=== PATIENT | male | born 1975 | race Caucasian/White ===

== ENCOUNTER 2023-01-12 02:41 | Inpatient (IN) | payer MEDICAID ==
[~2023-01-12] VITALS: Ht 170.2 cm; Wt 71.2 kg
[2023-01-12] MEDS ORDERED: SODIUM CHLORIDE 0.9% 1000ML BAG (SEPSIS BOLUS) IV ONE (03:15)
[2023-01-12] MEDS ORDERED: PIPERACILLIN/TAZ 3.375G PREMIX 50 ML IV ONE (03:15)
[2023-01-12] MEDS ORDERED: VANCOMYCIN 1G PREMIX 200 ML IV ONE (03:15)
[2023-01-12 03:37] LABS: HEMATOCRIT. 33.5 % (42.0-52.0); MEAN CORPUSCULAR HEMOGLOBIN 27.4 pg (28.0-32.0); MEAN CORPUSCULAR HGB CONC 32.8 g/dL (31.0-37.0); MEAN CORPUSCULAR VOLUME 83.6 fL (80.0-94.0); MEAN PLATELET VOLUME 7.8 fl (7.4-10.4); PLATELET 276 x1000/uL (130-400); RED CELL DISTRIBUTION WIDTH 18.2 % (11.6-14.6)
[2023-01-12 03:45] LABS: CHLORIDE 95 mEq/L (98-107); INDEX HEMOLYSI 1 (1-3); INDEX ICTERIC 1 (1-4); INDEX LIPEMIC 1 (1-3); POTASSIUM 4.2 mEq/L (3.5-5.1); SODIUM 125 mEq/L (136-145)
[2023-01-12 03:48] LABS: DIFFERENTIAL COMMENT 1
[2023-01-12 03:56] LABS: ALANINE AMINOTRANSFERASE 193 IU/L (13-61); ASPARTATE AMINOTRANSFERASE 68 IU/L (15-37); BILIRUBIN TOTAL 0.5 mg/dL (0.1-1.0); CALCIUM 7.5 mg/dL (8.5-10.1); CARBON DIOXIDE 24 mEq/L (21-32); CREATININE 0.8 mg/dL (0.6-1.3); GLUCOSE 78 mg/dL (70-105); NT PRO B-TYPE NATRIURETIC PEP 2787 pg/mL (5-125); PROTEIN TOTAL 5.9 g/dL (6.0-8.3); UREA NITROGEN BLOOD 20 mg/dL (7-21)
[2023-01-12 04:21] LABS: TROPONIN I HIGH SENSITIVITY 135 ng/L (<78)
[2023-01-12] MEDS ORDERED: ASPIRIN 325MG EC TABLET PO NR (04:30)
[2023-01-12 05:16] LABS: D-DIMER 7.25 mg/L FEU (<0.50)
[2023-01-12] MEDS ORDERED: ENOXAPARIN 80MG/0.8ML SYR SUBCUT NR (05:45)
[2023-01-12 05:58] LABS: TROPONIN I HIGH SENSITIVITY 127 ng/L (<78)
[2023-01-12 06:01] LABS: PLATELET ESTIMATE NORMAL
[2023-01-12] MEDS ORDERED: IOHEXOL-350 100 ML BOTTLE ONE (07:07)
[2023-01-12] MEDS ORDERED: PIPERACILLIN/TAZ 3.375G PREMIX 50 ML IV SCH (08:45)
[2023-01-12] MEDS ORDERED: ASPIRIN 325MG EC TABLET PO SCH (08:45)
[2023-01-12 09:55] LABS: CLARITY URINE HAZY (CLEAR); COLOR URINE YELLOW (YELLOW); GLUCOSE URINE NEGATIVE (NEGATIVE); KETONES URINE NEGATIVE (NEGATIVE); PH URINE 5.5 (4.5-8.0); PROTEIN URINE 1+ (NEGATIVE); SPECIFIC GRAVITY URINE 1.022 (1.005-1.030)
[2023-01-12 09:56] LABS: LEUKOCYTE ESTERASE URINE NEGATIVE (NEGATIVE); NITRITE URINE NEGATIVE (NEGATIVE); OCCULT BLOOD URINE NEGATIVE (NEGATIVE); UROBILINOGEN URINE 0.2 E.U./dL (0.2-1.0)
[2023-01-12 09:59] LABS: RBC URINE NONE SEEN /hpf (0-2); WBC URINE 0-2 /hpf (0-2)
[2023-01-12 10:00] LABS: BACTERIA URINE 1+; COARSE GRANULAR CASTS URINE 0-5 /lpf; SQUAMOUS EPITHELIAL CELL URINE NONE SEEN /lpf (RARE/1+); YEAST URINE NONE SEEN
[2023-01-12 12:13] LABS: BG BASE EXCESS -1.9 mmol/L (-2.0-2.0); BG CARBOXYHEMOGLOBIN 0.5 % (0.5-1.5); BG DEOXYHEMOGLOBIN 6.8 % (0.0-5.0); BG FRACTION INSPIRED OXYGEN 36; BG HCO3 ACT 21.5 mmol/L (22.0-26.0); BG METHEMOGLOBIN 0.5 % (0.0-1.5); BG OXYGEN SATURATION 93.1 % (92.0-98.5); BG OXYHEMOGLOBIN 92.2 % (94.0-97.0); BG PCO2 31.4 mmHg (35.0-45.0); BG PH 7.453 (7.350-7.450); BG PO2 66.8 mmHg (75.0-100.0); BG SAMPLE SITE RIGHT RADIAL; BG TOTAL HEMOGLOBIN 9.8 g/dL (12.0-18.0); BG VENT MODE NASAL CANNULA
[2023-01-12 13:00] VITALS: BP 111/70; PULSE 112; RESP 20; TEMP 98.1
[2023-01-12] MEDS ORDERED: SODIUM CHLORIDE 0.9% 1,000 ML IV ONE (13:00)
[2023-01-12 16:00] VITALS: BP 102/55; PULSE 110; PULSE 88; RESP 18; TEMP 101.2
[2023-01-12] MEDS ORDERED: DEXTROSE 50% WATER 50ML SYRINGE IV PRN (16:15)
[2023-01-12] MEDS ORDERED: CEFTRIAXONE 1GM PREMIX 50 ML IV SCH (16:30)
[2023-01-12] MEDS: PANTOPRAZOLE SODIUM 40 MG/VIAL IV SCH (16:57)
[2023-01-12] MEDS: SODIUM CHLORIDE 0.9% 1,000 ML IV SCH (16:58)
[2023-01-12] MEDS: BLOOD SUGAR DIAGNOSTIC STRIP TEST SCH ×2 (16:58→20:52)
[2023-01-12] MEDS: INSULIN LISPRO 100 UNITS/ML SUBCUT SCH ×2 (16:59→20:52)
[2023-01-12] MEDS: AZITHROMYCIN 500 MG in DEXT 5% WATER 250 ML IV SCH (17:00)
[2023-01-12] MEDS: ACETAMINOPHEN 325MG TABLET PO PRN (17:16)
[2023-01-12] MEDS ORDERED: CEFTRIAXONE 1,000 MG in DEXTROSE 5% WATER 50 ML IV SCH (18:00)
[2023-01-12] MEDS ORDERED: ONDANSETRON HCL 4MG/2ML INJ IV PRN (18:50)
[2023-01-12] MEDS: ONDANSETRON HCL 4MG/2ML INJ IV PRN (18:56)
[2023-01-12] MEDS ORDERED: BARIUM SULFATE 450ML ORAL SUSP PO SCH (19:00)
[2023-01-12] MEDS: METRONIDAZOLE 500 MG PREMIX 100 ML IV SCH (19:02)
[2023-01-12 20:00] VITALS: BP 109/60; PULSE 90; RESP 20; TEMP 98.4
[2023-01-12] MEDS: ENOXAPARIN 40MG/0.4ML SYR SUBCUT SCH (20:34)
[2023-01-12] MEDS: CEFEPIME 2,000 MG in DEXT 5% WATER 100 ML IV SCH (20:34)
[2023-01-12] MEDS: HYDROCODONE/ACETAMINOPHEN 10/325MG TABLET PO PRN (20:41)
[2023-01-12] MEDS ORDERED: PNEUMOCOCCAL 23-VAL P-SAC VAC 0.5 ML IM ONE (21:00)
[2023-01-12] MEDS ORDERED: DIATR MEGLU/DIATRIZOATE SOLN 30ML PO SCH (21:00)
[2023-01-13] VITALS (11 sets, daily range): BP systolic 81–120; BP diastolic 46–81; PULSE 89–119; RESP 18–22; TEMP 97–102.7; O2SAT 95
[2023-01-13] MEDS: METRONIDAZOLE 500 MG PREMIX 100 ML IV SCH ×3 (02:42→19:00)
[2023-01-13] MEDS: SODIUM CHLORIDE 0.9% 1,000 ML IV SCH ×2 (02:43→17:10)
[2023-01-13] MEDS: HYDROCODONE/ACETAMINOPHEN 10/325MG TABLET PO PRN ×2 (02:56→10:09)
[2023-01-13] MEDS: BLOOD SUGAR DIAGNOSTIC STRIP TEST SCH ×2 (06:15→12:20)
[2023-01-13] MEDS: INSULIN LISPRO 100 UNITS/ML SUBCUT SCH ×2 (06:15→12:20)
[2023-01-13 07:01] LABS: HEMATOCRIT. 23.6 % (42.0-52.0); MEAN CORPUSCULAR HEMOGLOBIN 28.8 pg (28.0-32.0); MEAN CORPUSCULAR HGB CONC 33.7 g/dL (31.0-37.0); MEAN CORPUSCULAR VOLUME 85.5 fL (80.0-94.0); MEAN PLATELET VOLUME 8.2 fl (7.4-10.4); PLATELET 184 x1000/uL (130-400); RED BLOOD CELL COUNT 2.77 mill/uL (4.7-6.1); RED CELL DISTRIBUTION WIDTH 19.3 % (11.6-14.6); WHITE BLOOD COUNT 8.7 x1000/uL (4.5-11.0)
[2023-01-13 07:25] LABS: DIFFERENTIAL COMMENT 1
[2023-01-13] MEDS: IPRATROPIUM/ALBUTEROL 0.5-3(2.5)MG/3ML NEB HHN SCH ×3 (08:05→20:17)
[2023-01-13 09:07] LABS: CHLORIDE 102 mEq/L (98-107); INDEX HEMOLYSI 1 (1-3); INDEX ICTERIC 1 (1-4); INDEX LIPEMIC 1 (1-3); POTASSIUM 3.9 mEq/L (3.5-5.1); SODIUM 130 mEq/L (136-145)
[2023-01-13 09:24] LABS: CALCIUM 7.4 mg/dL (8.5-10.1); CARBON DIOXIDE 24 mEq/L (21-32); CREATININE 0.8 mg/dL (0.6-1.3); GLUCOSE 89 mg/dL (70-105); UREA NITROGEN BLOOD 16 mg/dL (7-21)
[2023-01-13] MEDS: CEFEPIME 2,000 MG in DEXT 5% WATER 100 ML IV SCH ×2 (10:07→21:08)
[2023-01-13] MEDS: PANTOPRAZOLE SODIUM 40 MG/VIAL IV SCH (10:08)
[2023-01-13 16:23] LABS: ANISOCYTOSIS 1+; PLATELET ESTIMATE NORMAL
[2023-01-13] MEDS ORDERED: LOPERAMIDE HCL 2MG CAPSULE PO PRN (17:00)
[2023-01-13] MEDS: ONDANSETRON HCL 4MG/2ML INJ IV PRN ×2 (17:01→21:08)
[2023-01-13] MEDS: AZITHROMYCIN 500 MG in DEXT 5% WATER 250 ML IV SCH (17:10)
[2023-01-13] MEDS: ACETAMINOPHEN 325MG TABLET PO PRN (17:41)
[2023-01-13] MEDS ORDERED: SODIUM CHLORIDE 0.9% 500 ML IV NR (20:40)
[2023-01-13] MEDS: ENOXAPARIN 40MG/0.4ML SYR SUBCUT SCH (21:00)
[2023-01-14] VITALS (9 sets, daily range): BP systolic 90–118; BP diastolic 50–77; PULSE 64–118; RESP 16–24; TEMP 97.6–100; O2SAT 95
[2023-01-14] LABS: HEMATOCRIT. 23.8 % (42.0-52.0); HEMOGLOBIN. 7.8 g/dL (14.0-18.0); MEAN CORPUSCULAR HEMOGLOBIN 28.3 pg (28.0-32.0); MEAN CORPUSCULAR HGB CONC 32.9 g/dL (31.0-37.0); MEAN CORPUSCULAR VOLUME 86.3 fL (80.0-94.0); PLATELET 186 x1000/uL (130-400); RED BLOOD CELL COUNT 2.75 mill/uL (4.7-6.1); RED CELL DISTRIBUTION WIDTH 19.2 % (11.6-14.6); WHITE BLOOD COUNT 6.6 x1000/uL (4.5-11.0)
[2023-01-14 00:10] LABS: DIFFERENTIAL COMMENT 1
[2023-01-14 00:11] LABS: CHLORIDE 101 mEq/L (98-107); INDEX HEMOLYSI 1 (1-3); INDEX ICTERIC 1 (1-4); INDEX LIPEMIC 1 (1-3); POTASSIUM 3.9 mEq/L (3.5-5.1); SODIUM 130 mEq/L (136-145)
[2023-01-14 00:18] LABS: CALCIUM 7.2 mg/dL (8.5-10.1); CARBON DIOXIDE 23 mEq/L (21-32); CREATININE 0.7 mg/dL (0.6-1.3); GLUCOSE 102 mg/dL (70-105); UREA NITROGEN BLOOD 14 mg/dL (7-21)
[2023-01-14 00:57] LABS: PLATELET ESTIMATE NORMAL
[2023-01-14] MEDS: SODIUM CHLORIDE 0.9% 1,000 ML IV SCH ×2 (01:12→18:16)
[2023-01-14] MEDS: IPRATROPIUM/ALBUTEROL 0.5-3(2.5)MG/3ML NEB HHN SCH ×4 (02:24→21:16)
[2023-01-14] MEDS: METRONIDAZOLE 500 MG PREMIX 100 ML IV SCH ×3 (02:37→19:21)
[2023-01-14] MEDS: ONDANSETRON HCL 4MG/2ML INJ IV PRN ×2 (06:39→20:16)
[2023-01-14] MEDS: HYDROCODONE/ACETAMINOPHEN 10/325MG TABLET PO PRN (06:40)
[2023-01-14 07:45] LABS: ALBUMIN 1.2 g/dL (3.4-5.0)
[2023-01-14 08:09] LABS: PREALBUMIN 9.5 mg/dL (20.0-40.0)
[2023-01-14 09:11] LABS: ABSOLUTE LYMPHOCYTES 0.2 x10E3/uL (0.7-3.1); ABSOLUTE MONOCYTES 0.1 x10E3/uL (0.1-0.9); ABSOLUTE NEUTROPHILS 8.7 x10E3/uL (1.4-7.0); BASOPHILS 0 % (Not Estab.); EOSINOPHILS 0 % (Not Estab.); HEMATOCRIT 30.8 % (37.5-51.0); IMMATURE GRANULOCYTES 1 % (Not Estab.); IMMATURE GRANULOCYTES ABSOLUTE 0.1 x10E3/uL (0.0-0.1); LYMPHOCYTES 3 % (Not Estab.); MEAN CORPUSCULAR HEMOGLOBIN 28.8 pg (26.6-33.0); MEAN CORPUSCULAR HGB CONC. 32.5 g/dL (31.5-35.7); MEAN CORPUSCULAR VOLUME 89 fL (79-97); MONOCYTES 1 % (Not Estab.); NEUTROPHILS 95 % (Not Estab.); PLATELETS 254 x10E3/uL (150-450); RBC 3.47 x10E6/uL (4.14-5.80); RED CELL DISTRIBUTION WIDTH 18.1 % (11.6-15.4); WBC 9.1 x10E3/uL (3.4-10.8)
[2023-01-14] MEDS: PANTOPRAZOLE SODIUM 40 MG/VIAL IV SCH ×2 (09:36→20:16)
[2023-01-14] MEDS: CEFEPIME 2,000 MG in DEXT 5% WATER 100 ML IV SCH ×2 (09:36→20:16)
[2023-01-14 13:11] LABS: % CD 3 POS. LYMPHOCYTES 69.9 % (57.5-86.2); % CD 4 POS. LYMPHOCYTES 7.1 % (30.8-58.5); % CD 8 POS. LYMPH 63.8 % (12.0-35.5); ABSOLUTE CD 3 140 /uL (622-2402); ABSOLUTE CD 4 HELPER 14 /uL (359-1519); ABSOLUTE CD 8 SUPPRESSOR 128 /uL (109-897); CD4/CD8 RATIO 0.11 (0.92-3.72)
[2023-01-14 16:56] LABS: INDEX HEMOLYSI 1 (1-3); INDEX ICTERIC 1 (1-4); INDEX LIPEMIC 1 (1-3)
[2023-01-14 17:11] LABS: IRON 12 ug/dL (50-175); TOTAL IRON BINDING CAPACITY 104 ug/dL (250-450)
[2023-01-14] MEDS ORDERED: NALOXONE HCL 0.4MG/ML VIAL IV PRN (18:00)
[2023-01-14] MEDS: SUCRALFATE 1 G/10 ML UDC PO SCH ×2 (18:15→20:16)
[2023-01-14] MEDS: AZITHROMYCIN 500 MG in DEXT 5% WATER 250 ML IV SCH (18:16)
[2023-01-14 18:31] LABS: HEMOGLOBIN 8.8 g/dL (14.0-18.0)
[2023-01-14 19:49] LABS: CARCINO EMBRYONIC ANTIGEN 4.3 ng/ml
[2023-01-14] MEDS: ENOXAPARIN 40MG/0.4ML SYR SUBCUT SCH (20:16)
[2023-01-14 20:28] LABS: FOLIC ACID (FOLATE) SERUM 8.4 ng/mL (>5.38)
[2023-01-14] MEDS: METOCLOPRAMIDE HCL 10MG/2ML VIAL IV PRN (21:57)
[2023-01-15] VITALS (10 sets, daily range): BP systolic 61–121; BP diastolic 19–75; PULSE 20–133; RESP 17–26; TEMP 97.9–102.7
[2023-01-15] MEDS: SODIUM CHLORIDE 0.9% 1,000 ML IV SCH ×2 (00:26→09:45)
[2023-01-15] MEDS: IPRATROPIUM/ALBUTEROL 0.5-3(2.5)MG/3ML NEB HHN SCH ×4 (01:30→21:19)
[2023-01-15] MEDS: METRONIDAZOLE 500 MG PREMIX 100 ML IV SCH ×3 (02:43→21:20)
[2023-01-15] MEDS: ACETAMINOPHEN 325MG TABLET PO PRN ×2 (05:44→16:11)
[2023-01-15 06:06] LABS: HEMATOCRIT. 23.7 % (42.0-52.0); HEMOGLOBIN. 7.9 g/dL (14.0-18.0); MEAN CORPUSCULAR HEMOGLOBIN 28.4 pg (28.0-32.0); MEAN CORPUSCULAR HGB CONC 33.3 g/dL (31.0-37.0); MEAN CORPUSCULAR VOLUME 85.2 fL (80.0-94.0); MEAN PLATELET VOLUME 7.8 fl (7.4-10.4); PLATELET 206 x1000/uL (130-400); RED BLOOD CELL COUNT 2.78 mill/uL (4.7-6.1); RED CELL DISTRIBUTION WIDTH 19.2 % (11.6-14.6); WHITE BLOOD COUNT 6.9 x1000/uL (4.5-11.0)
[2023-01-15 06:13] LABS: DIFFERENTIAL COMMENT 1
[2023-01-15 06:14] LABS: INR 1.2; PROTHROMBIN TIME 12.9 sec (9.6-11.0)
[2023-01-15] MEDS: SUCRALFATE 1 G/10 ML UDC PO SCH ×4 (06:24→21:20)
[2023-01-15 08:08] LABS: HIV 1 ABS Reactive (Non Reactive); HIV 2 ABS Non Reactive (Non Reactive); HIV SCREEN 4G Preliminary Reactive (Non Reactive); INTERPRETATION HIV-1 Positive (.)
[2023-01-15 08:39] LABS: CALCIUM 6.2 mg/dL (8.5-10.1); CARBON DIOXIDE 19 mEq/L (21-32); CHLORIDE 101 mEq/L (98-107); CREATININE 0.5 mg/dL (0.6-1.3); GLUCOSE 66 mg/dL (70-105); INDEX HEMOLYSI 1 (1-3); INDEX ICTERIC 1 (1-4); INDEX LIPEMIC 1 (1-3); POTASSIUM 3.6 mEq/L (3.5-5.1); SODIUM 128 mEq/L (136-145); UREA NITROGEN BLOOD 9 mg/dL (7-21)
[2023-01-15] MEDS: PANTOPRAZOLE SODIUM 40 MG/VIAL IV SCH ×2 (09:42→21:20)
[2023-01-15] MEDS: CEFEPIME 2,000 MG in DEXT 5% WATER 100 ML IV SCH ×2 (09:43→20:09)
[2023-01-15] MEDS: METOCLOPRAMIDE HCL 10MG/2ML VIAL IV PRN (13:04)
[2023-01-15] MEDS ORDERED: SULFAMETHOXAZOLE/TRIMETHOPRIM 400/80MG TAB PO SCH (14:45)
[2023-01-15] MEDS ORDERED: DIATR MEGLU/DIATRIZOATE SOLN 30ML PO SCH (15:30)
[2023-01-15 16:36] LABS: ANISOCYTOSIS 1+; PLATELET ESTIMATE NORMAL; ROULEAUX 1+
[2023-01-15 16:57] LABS: BG BASE EXCESS -1.1 mmol/L (-2.0-2.0); BG CARBOXYHEMOGLOBIN 0.2 % (0.5-1.5); BG DEOXYHEMOGLOBIN 8.4 % (0.0-5.0); BG HCO3 ACT 21.8 mmol/L (22.0-26.0); BG METHEMOGLOBIN 0.6 % (0.0-1.5); BG OXYGEN SATURATION 91.5 % (92.0-98.5); BG OXYHEMOGLOBIN 90.8 % (94.0-97.0); BG PCO2 29.7 mmHg (35.0-45.0); BG PH 7.484 (7.350-7.450); BG PO2 57.2 mmHg (75.0-100.0); BG SAMPLE SITE RIGHT RADIAL; BG VENT MODE NASAL CANNULA
[2023-01-15] MEDS: SULFAMETHOXAZOLE/TRIMETHOPRIM 800/160MG TABLET PO SCH (17:30)
[2023-01-15] MEDS: AZITHROMYCIN 500 MG in DEXT 5% WATER 250 ML IV SCH (17:30)
[2023-01-15] MEDS: DEXT 5%/0.9% NACL 1,000 ML IV SCH (17:30)
[2023-01-15] MEDS: METOCLOPRAMIDE HCL 10MG/2ML VIAL IV SCH (17:59)
[2023-01-15 19:17] LABS: INDEX HEMOLYSI 2 (1-3)
[2023-01-15 19:24] LABS: CREATINE KINASE 34 IU/L (39-308)
[2023-01-15] MEDS: ENOXAPARIN 40MG/0.4ML SYR SUBCUT SCH (21:00)
[2023-01-15] MEDS: CLARITHROMYCIN 500MG TABLET PO SCH (21:20)
[2023-01-16] VITALS (15 sets, daily range): BP systolic 78–135; BP diastolic 46–76; PULSE 95–121; RESP 20–41; TEMP 98.2–100
[2023-01-16] MEDS: SULFAMETHOXAZOLE/TRIMETHOPRIM 800/160MG TABLET PO SCH ×4 (00:06→22:20)
[2023-01-16] MEDS: IPRATROPIUM/ALBUTEROL 0.5-3(2.5)MG/3ML NEB HHN SCH ×4 (02:05→20:41)
[2023-01-16] MEDS: DEXT 5%/0.9% NACL 1,000 ML IV SCH ×3 (02:32→22:19)
[2023-01-16] MEDS: METRONIDAZOLE 500 MG PREMIX 100 ML IV SCH ×3 (02:53→19:00)
[2023-01-16] MEDS: METOCLOPRAMIDE HCL 10MG/2ML VIAL IV SCH ×4 (05:22→18:52)
[2023-01-16 05:43] LABS: HEMATOCRIT. 24.9 % (42.0-52.0); HEMOGLOBIN. 8.1 g/dL (14.0-18.0); MEAN CORPUSCULAR HEMOGLOBIN 27.7 pg (28.0-32.0); MEAN CORPUSCULAR HGB CONC 32.6 g/dL (31.0-37.0); MEAN PLATELET VOLUME 7.6 fl (7.4-10.4); PLATELET 221 x1000/uL (130-400); RED BLOOD CELL COUNT 2.93 mill/uL (4.7-6.1); RED CELL DISTRIBUTION WIDTH 19.8 % (11.6-14.6); WHITE BLOOD COUNT 5.7 x1000/uL (4.5-11.0)
[2023-01-16 06:16] LABS: DIFFERENTIAL COMMENT 1
[2023-01-16 08:48] LABS: CALCIUM 7.2 mg/dL (8.5-10.1); CHLORIDE 103 mEq/L (98-107); INDEX HEMOLYSI 1 (1-3); INDEX ICTERIC 1 (1-4); INDEX LIPEMIC 1 (1-3); POTASSIUM 3.4 mEq/L (3.5-5.1); SODIUM 131 mEq/L (136-145)
[2023-01-16 08:56] LABS: ALANINE AMINOTRANSFERASE 58 IU/L (13-61); ALBUMIN 1.5 g/dL (3.4-5.0); ASPARTATE AMINOTRANSFERASE 54 IU/L (15-37); BILIRUBIN DIRECT 0.1 mg/dL (0.0-0.2); BILIRUBIN TOTAL 0.3 mg/dL (0.1-1.0); CARBON DIOXIDE 20 mEq/L (21-32); CREATININE 0.5 mg/dL (0.6-1.3); GLUCOSE 97 mg/dL (70-105); PROTEIN TOTAL 4.7 g/dL (6.0-8.3); UREA NITROGEN BLOOD 9 mg/dL (7-21)
[2023-01-16] MEDS: SUCRALFATE 1 G/10 ML UDC PO SCH ×4 (09:34→22:19)
[2023-01-16] MEDS: PANTOPRAZOLE SODIUM 40 MG/VIAL IV SCH ×2 (09:34→22:19)
[2023-01-16] MEDS: CLARITHROMYCIN 500MG TABLET PO SCH ×2 (09:34→22:19)
[2023-01-16] MEDS: CEFEPIME 2,000 MG in DEXT 5% WATER 100 ML IV SCH ×2 (09:35→22:19)
[2023-01-16 10:03] LABS: BG BASE EXCESS -2.2 mmol/L (-2.0-2.0); BG CARBOXYHEMOGLOBIN 0.3 % (0.5-1.5); BG DEOXYHEMOGLOBIN 7.5 % (0.0-5.0); BG FRACTION INSPIRED OXYGEN 48; BG HCO3 ACT 21.7 mmol/L (22.0-26.0); BG METHEMOGLOBIN 0.3 % (0.0-1.5); BG OXYGEN SATURATION 92.5 % (92.0-98.5); BG OXYHEMOGLOBIN 91.9 % (94.0-97.0); BG PCO2 33.8 mmHg (35.0-45.0); BG PH 7.425 (7.350-7.450); BG PO2 63.5 mmHg (75.0-100.0); BG SAMPLE SITE LEFT RADIAL; BG TOTAL HEMOGLOBIN 9.9 g/dL (12.0-18.0); BG VENT MODE NASAL CANNULA
[2023-01-16] MEDS ORDERED: POTASSIUM CHLORIDE 20MEQ TABLET SR PO NR (10:30)
[2023-01-16] MEDS ORDERED: FUROSEMIDE 20MG/2ML VIAL IVP SCH (14:45)
[2023-01-16] MEDS: ACETYLCYSTEINE 100MG/ML 10% VIAL 4ML INH SCH (16:22)
[2023-01-16 20:10] LABS: ANISOCYTOSIS 1+; PLATELET ESTIMATE NORMAL
[2023-01-16 20:22] LABS: HYPOCHROMASIA 1+; OVALOCYTES 1+
[2023-01-16] MEDS: ENOXAPARIN 40MG/0.4ML SYR SUBCUT SCH (22:20)
[2023-01-17] VITALS (19 sets, daily range): BP systolic 88–129; BP diastolic 45–77; PULSE 63–127; RESP 18–52; TEMP 97.8–99.2; O2SAT 83
[2023-01-17] MEDS: IPRATROPIUM/ALBUTEROL 0.5-3(2.5)MG/3ML NEB HHN SCH ×4 (00:14→21:11)
[2023-01-17] MEDS: ACETYLCYSTEINE 100MG/ML 10% VIAL 4ML INH SCH ×3 (00:14→21:11)
[2023-01-17] MEDS: METRONIDAZOLE 500 MG PREMIX 100 ML IV SCH ×3 (03:34→20:59)
[2023-01-17] MEDS: SULFAMETHOXAZOLE/TRIMETHOPRIM 800/160MG TABLET PO SCH ×3 (06:09→22:35)
[2023-01-17] MEDS: SUCRALFATE 1 G/10 ML UDC PO SCH ×4 (07:40→21:03)
[2023-01-17] MEDS: PANTOPRAZOLE SODIUM 40 MG/VIAL IV SCH ×2 (08:14→21:03)
[2023-01-17] MEDS: CEFEPIME 2,000 MG in DEXT 5% WATER 100 ML IV SCH ×2 (08:14→20:59)
[2023-01-17] MEDS: DEXT 5%/0.9% NACL 1,000 ML IV SCH ×2 (08:14→18:50)
[2023-01-17 08:42] LABS: BG BASE EXCESS -3.5 mmol/L (-2.0-2.0); BG CARBOXYHEMOGLOBIN 0.9 % (0.5-1.5); BG DEOXYHEMOGLOBIN 5.4 % (0.0-5.0); BG FRACTION INSPIRED OXYGEN 40; BG HCO3 ACT 19.6 mmol/L (22.0-26.0); BG METHEMOGLOBIN 0.3 % (0.0-1.5); BG OXYGEN SATURATION 94.5 % (92.0-98.5); BG OXYHEMOGLOBIN 93.4 % (94.0-97.0); BG PCO2 27.8 mmHg (35.0-45.0); BG PH 7.467 (7.350-7.450); BG PO2 70.4 mmHg (75.0-100.0); BG SAMPLE SITE LEFT BRACHIAL; BG TOTAL HEMOGLOBIN 7.3 g/dL (12.0-18.0); BG VENT MODE NASAL CANNULA
[2023-01-17 11:04] LABS: HEMATOCRIT. 21.5 % (42.0-52.0); HEMOGLOBIN. 7.2 g/dL (14.0-18.0); MEAN CORPUSCULAR HEMOGLOBIN 28.7 pg (28.0-32.0); MEAN CORPUSCULAR HGB CONC 33.7 g/dL (31.0-37.0); MEAN CORPUSCULAR VOLUME 85.1 fL (80.0-94.0); MEAN PLATELET VOLUME 7.7 fl (7.4-10.4); PLATELET 238 x1000/uL (130-400); RED BLOOD CELL COUNT 2.52 mill/uL (4.7-6.1); RED CELL DISTRIBUTION WIDTH 20.2 % (11.6-14.6); WHITE BLOOD COUNT 5.1 x1000/uL (4.5-11.0)
[2023-01-17 11:06] LABS: DIFFERENTIAL COMMENT 1
[2023-01-17 14:40] LABS: PLATELET ESTIMATE NORMAL
[2023-01-17 14:41] LABS: ROULEAUX 1+
[2023-01-17] MEDS: ENOXAPARIN 40MG/0.4ML SYR SUBCUT SCH (21:03)
[2023-01-18] VITALS (15 sets, daily range): BP systolic 107–142; BP diastolic 56–91; PULSE 106–118; RESP 20–63; TEMP 98.4–99.8; O2SAT 92
[2023-01-18 00:02] LABS: HEMATOCRIT 24.9 % (42.0-52.0); HEMOGLOBIN 8.3 g/dL (14.0-18.0)
[2023-01-18 00:13] LABS: CHLORIDE 103 mEq/L (98-107); INDEX HEMOLYSI 1 (1-3); INDEX ICTERIC 1 (1-4); INDEX LIPEMIC 1 (1-3); POTASSIUM 3.6 mEq/L (3.5-5.1); SODIUM 130 mEq/L (136-145)
[2023-01-18 00:22] LABS: ALANINE AMINOTRANSFERASE 39 IU/L (13-61); ALBUMIN 1.5 g/dL (3.4-5.0); ASPARTATE AMINOTRANSFERASE 47 IU/L (15-37); BILIRUBIN DIRECT 0.2 mg/dL (0.0-0.2); BILIRUBIN TOTAL 0.7 mg/dL (0.1-1.0); CALCIUM 6.8 mg/dL (8.5-10.1); CARBON DIOXIDE 20 mEq/L (21-32); CREATININE 0.5 mg/dL (0.6-1.3); GLUCOSE 95 mg/dL (70-105); PROTEIN TOTAL 4.7 g/dL (6.0-8.3); UREA NITROGEN BLOOD 8 mg/dL (7-21)
[2023-01-18] MEDS: METRONIDAZOLE 500 MG PREMIX 100 ML IV SCH ×2 (04:03→13:18)
[2023-01-18] MEDS: DEXT 5%/0.9% NACL 1,000 ML IV SCH ×3 (04:04→22:50)
[2023-01-18 07:32] LABS: HEMATOCRIT. 25.5 % (42.0-52.0); HEMOGLOBIN. 8.4 g/dL (14.0-18.0); MEAN CORPUSCULAR HEMOGLOBIN 27.9 pg (28.0-32.0); MEAN CORPUSCULAR HGB CONC 33.1 g/dL (31.0-37.0); MEAN CORPUSCULAR VOLUME 84.3 fL (80.0-94.0); MEAN PLATELET VOLUME 7.7 fl (7.4-10.4); PLATELET 236 x1000/uL (130-400); RED BLOOD CELL COUNT 3.03 mill/uL (4.7-6.1); RED CELL DISTRIBUTION WIDTH 19.4 % (11.6-14.6); WHITE BLOOD COUNT 5.5 x1000/uL (4.5-11.0)
[2023-01-18 07:34] LABS: DIFFERENTIAL COMMENT 1
[2023-01-18 07:52] LABS: CHLORIDE 101 mEq/L (98-107); INDEX HEMOLYSI 1 (1-3); INDEX ICTERIC 1 (1-4); INDEX LIPEMIC 1 (1-3); POTASSIUM 3.9 mEq/L (3.5-5.1); SODIUM 128 mEq/L (136-145)
[2023-01-18 08:02] LABS: ALANINE AMINOTRANSFERASE 38 IU/L (13-61); ALBUMIN 1.5 g/dL (3.4-5.0); ASPARTATE AMINOTRANSFERASE 50 IU/L (15-37); BILIRUBIN DIRECT 0.2 mg/dL (0.0-0.2); BILIRUBIN TOTAL 0.5 mg/dL (0.1-1.0); CALCIUM 6.7 mg/dL (8.5-10.1); CARBON DIOXIDE 21 mEq/L (21-32); CREATININE 0.5 mg/dL (0.6-1.3); GLUCOSE 92 mg/dL (70-105); PROTEIN TOTAL 4.7 g/dL (6.0-8.3); UREA NITROGEN BLOOD 8 mg/dL (7-21)
[2023-01-18] MEDS ORDERED: IPRATROPIUM/ALBUTEROL 0.5-3(2.5)MG/3ML NEB HHN PRN (09:00)
[2023-01-18] MEDS: CEFEPIME 2,000 MG in DEXT 5% WATER 100 ML IV SCH ×2 (10:08→20:32)
[2023-01-18] MEDS: SULFAMETHOXAZOLE/TRIMETHOPRIM 800/160MG TABLET PO SCH ×3 (10:09→22:50)
[2023-01-18] MEDS: SUCRALFATE 1 G/10 ML UDC PO SCH ×4 (10:09→20:33)
[2023-01-18 10:42] LABS: PLATELET ESTIMATE NORMAL
[2023-01-18] MEDS: PANTOPRAZOLE SODIUM 40 MG/VIAL IV SCH ×2 (11:18→20:33)
[2023-01-18] MEDS: ACETYLCYSTEINE 100MG/ML 10% VIAL 4ML INH SCH (14:56)
[2023-01-18] MEDS: IPRATROPIUM/ALBUTEROL 0.5-3(2.5)MG/3ML NEB HHN SCH ×2 (14:56→20:10)
[2023-01-18] MEDS: METRONIDAZOLE 500MG TABLET PO SCH ×2 (16:00→20:33)
[2023-01-18] MEDS: ONDANSETRON HCL 4MG/2ML INJ IV PRN (20:33)
[2023-01-18] MEDS: ACETAMINOPHEN 325MG TABLET PO PRN (22:49)
[2023-01-19] VITALS (16 sets, daily range): BP systolic 97–126; BP diastolic 55–81; PULSE 90–113; RESP 14–32; TEMP 97.5–99.4; O2SAT 92–99
[2023-01-19] MEDS: ACETYLCYSTEINE 100MG/ML 10% VIAL 4ML INH SCH ×3 (02:11→14:55)
[2023-01-19] MEDS: IPRATROPIUM/ALBUTEROL 0.5-3(2.5)MG/3ML NEB HHN SCH ×3 (02:11→14:55)
[2023-01-19] MEDS: METRONIDAZOLE 500MG TABLET PO SCH ×3 (03:43→20:58)
[2023-01-19] MEDS: SULFAMETHOXAZOLE/TRIMETHOPRIM 800/160MG TABLET PO SCH ×3 (06:32→23:48)
[2023-01-19 07:19] LABS: HEMATOCRIT. 26.2 % (42.0-52.0); HEMOGLOBIN. 8.9 g/dL (14.0-18.0); MEAN CORPUSCULAR HEMOGLOBIN 28.7 pg (28.0-32.0); MEAN CORPUSCULAR VOLUME 84.6 fL (80.0-94.0); MEAN PLATELET VOLUME 7.4 fl (7.4-10.4); PLATELET 233 x1000/uL (130-400); RED BLOOD CELL COUNT 3.09 mill/uL (4.7-6.1); RED CELL DISTRIBUTION WIDTH 19.6 % (11.6-14.6)
[2023-01-19 07:38] LABS: DIFFERENTIAL COMMENT 1
[2023-01-19] MEDS: SUCRALFATE 1 G/10 ML UDC PO SCH ×4 (08:33→20:58)
[2023-01-19] MEDS: PANTOPRAZOLE SODIUM 40 MG/VIAL IV SCH ×2 (08:34→20:58)
[2023-01-19] MEDS: ONDANSETRON HCL 4MG/2ML INJ IV PRN ×2 (08:34→14:03)
[2023-01-19] MEDS: CEFEPIME 2,000 MG in DEXT 5% WATER 100 ML IV SCH ×2 (08:34→20:58)
[2023-01-19 08:48] LABS: CHLORIDE 104 mEq/L (98-107); INDEX HEMOLYSI 1 (1-3); INDEX ICTERIC 1 (1-4); INDEX LIPEMIC 1 (1-3); POTASSIUM 3.3 mEq/L (3.5-5.1); SODIUM 131 mEq/L (136-145)
[2023-01-19 08:52] LABS: BG BASE EXCESS -2.7 mmol/L (-2.0-2.0); BG CARBOXYHEMOGLOBIN 0.1 % (0.5-1.5); BG DEOXYHEMOGLOBIN 6.9 % (0.0-5.0); BG FRACTION INSPIRED OXYGEN 40; BG HCO3 ACT 20.7 mmol/L (22.0-26.0); BG METHEMOGLOBIN 0.3 % (0.0-1.5); BG OXYGEN SATURATION 93.1 % (92.0-98.5); BG OXYHEMOGLOBIN 92.7 % (94.0-97.0); BG PCO2 30.8 mmHg (35.0-45.0); BG PH 7.445 (7.350-7.450); BG PO2 65.3 mmHg (75.0-100.0); BG SAMPLE SITE LEFT BRACHIAL; BG TOTAL HEMOGLOBIN 9.5 g/dL (12.0-18.0); BG VENT MODE NASAL CANNULA
[2023-01-19 08:57] LABS: ALANINE AMINOTRANSFERASE 41 IU/L (13-61); ALBUMIN 1.5 g/dL (3.4-5.0); ASPARTATE AMINOTRANSFERASE 59 IU/L (15-37); BILIRUBIN DIRECT 0.2 mg/dL (0.0-0.2); BILIRUBIN TOTAL 0.3 mg/dL (0.1-1.0); CARBON DIOXIDE 21 mEq/L (21-32); CREATININE 0.5 mg/dL (0.6-1.3); GLUCOSE 98 mg/dL (70-105); PROTEIN TOTAL 4.6 g/dL (6.0-8.3); UREA NITROGEN BLOOD 8 mg/dL (7-21)
[2023-01-19] MEDS: DEXT 5%/0.9% NACL 1,000 ML IV SCH ×2 (10:24→21:00)
[2023-01-19] MEDS ORDERED: POTASSIUM CHLORIDE 20MEQ TABLET SR PO SCH (11:00)
[2023-01-19 12:35] LABS: ANISOCYTOSIS 1+; PLATELET ESTIMATE NORMAL
[2023-01-19] MEDS: METHYLPREDNISOLONE SOD SUCC 125MG/2ML (ACT-O-VIAL) IV SCH ×2 (13:02→20:58)
[2023-01-20] VITALS (16 sets, daily range): BP systolic 96–139; BP diastolic 32–79; PULSE 83–112; RESP 15–32; TEMP 97.3–97.9; O2SAT 93–96
[2023-01-20] MEDS: IPRATROPIUM/ALBUTEROL 0.5-3(2.5)MG/3ML NEB HHN SCH ×4 (00:17→21:06)
[2023-01-20] MEDS: ACETYLCYSTEINE 100MG/ML 10% VIAL 4ML INH SCH (00:17)
[2023-01-20] MEDS: METHYLPREDNISOLONE SOD SUCC 125MG/2ML (ACT-O-VIAL) IV SCH ×2 (03:36→11:46)
[2023-01-20] MEDS: METRONIDAZOLE 500MG TABLET PO SCH ×3 (03:36→20:38)
[2023-01-20 06:21] LABS: BASOPHILS % 0.4 % (0.0-2.0); EOSINOPHILS % 0.1 % (0.0-5.0); HEMATOCRIT. 25.5 % (42.0-52.0); HEMOGLOBIN. 8.5 g/dL (14.0-18.0); LYMPHOCYTES % 7.1 % (20.0-50.0); MEAN CORPUSCULAR HEMOGLOBIN 28.6 pg (28.0-32.0); MEAN CORPUSCULAR HGB CONC 33.3 g/dL (31.0-37.0); MEAN CORPUSCULAR VOLUME 85.9 fL (80.0-94.0); MEAN PLATELET VOLUME 7.9 fl (7.4-10.4); MONOCYTES % 3.9 % (2.0-8.0); NEUTROPHILS % 88.5 % (40.0-76.0); PLATELET 214 x1000/uL (130-400); RED BLOOD CELL COUNT 2.97 mill/uL (4.7-6.1); RED CELL DISTRIBUTION WIDTH 20.3 % (11.6-14.6); WHITE BLOOD COUNT 2.5 x1000/uL (4.5-11.0)
[2023-01-20 06:24] LABS: CHLORIDE 105 mEq/L (98-107); INDEX HEMOLYSI 1 (1-3); INDEX ICTERIC 1 (1-4); INDEX LIPEMIC 1 (1-3); POTASSIUM 4.3 mEq/L (3.5-5.1); SODIUM 131 mEq/L (136-145)
[2023-01-20] MEDS: SULFAMETHOXAZOLE/TRIMETHOPRIM 800/160MG TABLET PO SCH ×3 (06:36→23:23)
[2023-01-20] MEDS: SUCRALFATE 1 G/10 ML UDC PO SCH ×4 (06:36→20:38)
[2023-01-20 06:37] LABS: CALCIUM 6.9 mg/dL (8.5-10.1); CARBON DIOXIDE 20 mEq/L (21-32); CREATININE 0.5 mg/dL (0.6-1.3); GLUCOSE 234 mg/dL (70-105); NT PRO B-TYPE NATRIURETIC PEP 3812 pg/mL (5-125); UREA NITROGEN BLOOD 10 mg/dL (7-21)
[2023-01-20] MEDS: CEFEPIME 2,000 MG in DEXT 5% WATER 100 ML IV SCH ×2 (08:07→20:38)
[2023-01-20] MEDS: PANTOPRAZOLE SODIUM 40 MG/VIAL IV SCH ×2 (08:07→20:38)
[2023-01-20] MEDS ORDERED: FUROSEMIDE 20MG/2ML VIAL IVP NR (09:00)
[2023-01-20] MEDS ORDERED: GUAIFENESIN-DM 200MG-20MG/10ML UDC PO PRN (11:15)
[2023-01-20] MEDS: DEXT 5%/0.9% NACL 1,000 ML IV SCH (14:23)
[2023-01-20] MEDS: METHYLPREDNISOLONE SOD SUCC 40MG/ML (ACT-O-VIAL) IV SCH (20:38)
[2023-01-20] MEDS ORDERED: DEXTROSE 50% WATER 50ML SYRINGE IV PRN (21:00)
[2023-01-20] MEDS: INSULIN GLARGINE 100 UNITS/ML SUBCUT SCH (21:11)
[2023-01-20] MEDS: INSULIN LISPRO 100 UNITS/ML SUBCUT SCH (21:11)
[2023-01-20] MEDS: BLOOD SUGAR DIAGNOSTIC STRIP TEST SCH (21:11)
[2023-01-21] VITALS (15 sets, daily range): BP systolic 86–125; BP diastolic 57–89; PULSE 89–115; RESP 14–29; TEMP 97.4–98; O2SAT 95–98
[2023-01-21] MEDS: IPRATROPIUM/ALBUTEROL 0.5-3(2.5)MG/3ML NEB HHN SCH ×4 (00:58→20:02)
[2023-01-21] MEDS: METHYLPREDNISOLONE SOD SUCC 40MG/ML (ACT-O-VIAL) IV SCH ×3 (03:05→20:41)
[2023-01-21] MEDS: METRONIDAZOLE 500MG TABLET PO SCH ×3 (03:06→20:39)
[2023-01-21 07:21] LABS: HEMATOCRIT. 25.6 % (42.0-52.0); HEMOGLOBIN. 8.7 g/dL (14.0-18.0); MEAN CORPUSCULAR HGB CONC 34.1 g/dL (31.0-37.0); MEAN CORPUSCULAR VOLUME 85.1 fL (80.0-94.0); MEAN PLATELET VOLUME 7.8 fl (7.4-10.4); PLATELET 291 x1000/uL (130-400); RED BLOOD CELL COUNT 3.01 mill/uL (4.7-6.1); RED CELL DISTRIBUTION WIDTH 20.3 % (11.6-14.6); WHITE BLOOD COUNT 3.3 x1000/uL (4.5-11.0)
[2023-01-21] MEDS: BLOOD SUGAR DIAGNOSTIC STRIP TEST SCH ×4 (07:30→20:39)
[2023-01-21 07:36] LABS: DIFFERENTIAL COMMENT 1
[2023-01-21 07:41] LABS: CALCIUM 7.3 mg/dL (8.5-10.1); CHLORIDE 102 mEq/L (98-107); INDEX HEMOLYSI 1 (1-3); INDEX ICTERIC 1 (1-4); INDEX LIPEMIC 1 (1-3); POTASSIUM 4.4 mEq/L (3.5-5.1); SODIUM 130 mEq/L (136-145)
[2023-01-21 07:47] LABS: CARBON DIOXIDE 21 mEq/L (21-32); CREATININE 0.5 mg/dL (0.6-1.3); GLUCOSE 252 mg/dL (70-105); UREA NITROGEN BLOOD 11 mg/dL (7-21)
[2023-01-21] MEDS: SULFAMETHOXAZOLE/TRIMETHOPRIM 800/160MG TABLET PO SCH ×3 (08:35→20:39)
[2023-01-21] MEDS: PANTOPRAZOLE SODIUM 40 MG/VIAL IV SCH ×2 (08:37→20:39)
[2023-01-21] MEDS: SUCRALFATE 1 G/10 ML UDC PO SCH ×4 (08:37→20:39)
[2023-01-21] MEDS: CEFEPIME 2,000 MG in DEXT 5% WATER 100 ML IV SCH ×2 (08:37→20:39)
[2023-01-21] MEDS: INSULIN LISPRO 100 UNITS/ML SUBCUT SCH ×4 (08:38→21:23)
[2023-01-21] MEDS: ACETAMINOPHEN 325MG TABLET PO PRN (08:39)
[2023-01-21 09:27] LABS: BG BASE EXCESS -3.9 mmol/L (-2.0-2.0); BG DEOXYHEMOGLOBIN 5.2 % (0.0-5.0); BG FRACTION INSPIRED OXYGEN 38; BG METHEMOGLOBIN 0.5 % (0.0-1.5); BG OXYGEN SATURATION 94.7 % (92.0-98.5); BG OXYHEMOGLOBIN 93.3 % (94.0-97.0); BG PCO2 26.5 mmHg (35.0-45.0); BG PH 7.474 (7.350-7.450); BG PO2 73.6 mmHg (75.0-100.0); BG SAMPLE SITE LEFT BRACHIAL; BG TOTAL HEMOGLOBIN 8.1 g/dL (12.0-18.0); BG VENT MODE NASAL CANNULA
[2023-01-21] MEDS: INSULIN GLARGINE 100 UNITS/ML SUBCUT SCH ×2 (10:33→21:24)
[2023-01-21] MEDS: DEXT 5%/0.9% NACL 1,000 ML IV SCH (10:34)
[2023-01-21 12:33] LABS: ANISOCYTOSIS 2+; PLATELET ESTIMATE NORMAL
[2023-01-22] VITALS (7 sets, daily range): BP systolic 114–125; BP diastolic 71–76; PULSE 85–103; RESP 18–24; TEMP 97.6–98.2; O2SAT 95–99
[2023-01-22] MEDS: IPRATROPIUM/ALBUTEROL 0.5-3(2.5)MG/3ML NEB HHN SCH ×2 (02:34→08:15)
[2023-01-22] MEDS: METHYLPREDNISOLONE SOD SUCC 40MG/ML (ACT-O-VIAL) IV SCH ×2 (05:10→12:00)
[2023-01-22] MEDS: ACETAMINOPHEN 325MG TABLET PO PRN (05:32)
[2023-01-22] MEDS: DEXT 5%/0.9% NACL 1,000 ML IV SCH (06:03)
[2023-01-22 06:33] LABS: HEMATOCRIT. 25.3 % (42.0-52.0); HEMOGLOBIN. 8.4 g/dL (14.0-18.0); MEAN CORPUSCULAR HEMOGLOBIN 28.1 pg (28.0-32.0); MEAN CORPUSCULAR VOLUME 85.1 fL (80.0-94.0); MEAN PLATELET VOLUME 7.9 fl (7.4-10.4); PLATELET 302 x1000/uL (130-400); RED BLOOD CELL COUNT 2.98 mill/uL (4.7-6.1); RED CELL DISTRIBUTION WIDTH 20.6 % (11.6-14.6); WHITE BLOOD COUNT 2.6 x1000/uL (4.5-11.0)
[2023-01-22 06:37] LABS: DIFFERENTIAL COMMENT 1
[2023-01-22 07:25] LABS: CHLORIDE 105 mEq/L (98-107); INDEX HEMOLYSI 1 (1-3); INDEX ICTERIC 1 (1-4); INDEX LIPEMIC 1 (1-3); POTASSIUM 4.6 mEq/L (3.5-5.1); SODIUM 131 mEq/L (136-145)
[2023-01-22] MEDS: BLOOD SUGAR DIAGNOSTIC STRIP TEST SCH ×2 (07:30→13:00)
[2023-01-22 07:33] LABS: CALCIUM 7.2 mg/dL (8.5-10.1); CARBON DIOXIDE 25 mEq/L (21-32); CREATININE 0.6 mg/dL (0.6-1.3); GLUCOSE 209 mg/dL (70-105); UREA NITROGEN BLOOD 9 mg/dL (7-21)
[2023-01-22] MEDS: PANTOPRAZOLE SODIUM 40 MG/VIAL IV SCH (08:53)
[2023-01-22] MEDS: SULFAMETHOXAZOLE/TRIMETHOPRIM 800/160MG TABLET PO SCH (08:53)
[2023-01-22] MEDS: SUCRALFATE 1 G/10 ML UDC PO SCH ×2 (08:53→12:30)
[2023-01-22] MEDS: INSULIN LISPRO 100 UNITS/ML SUBCUT SCH ×2 (08:54→13:00)
[2023-01-22] MEDS: INSULIN GLARGINE 100 UNITS/ML SUBCUT SCH (08:55)
[2023-01-22] MEDS ORDERED: P20 MT (10:49)
[2023-01-22] MEDS ORDERED: FLUT1DIS3 INH (10:49)
[2023-01-22] MEDS ORDERED: OMEP40CA20 MT (10:49)
[2023-01-22] MEDS ORDERED: ALBU18HF2 IH (10:49)
[2023-01-22 20:37] LABS: ANISOCYTOSIS 2+; PLATELET ESTIMATE NORMAL
[2023-01-23] MEDS ORDERED: AZITHROMYCIN 600 MG TABLET PO SCH (09:00)
== END 2023-01-23 04:34 | disposition home or self-care (01) | DRG 890 ==
LOC: ER 02:54 → 8WST 06:36 → EDBEDREQ 06:43 → EDBEDREQTM 06:43 → 5EST 01-15 17:34
PROVIDERS: ADMIT Internal Medicine; ATTEND Internal Medicine
PROC: 30233N1 Transfusion of Nonautologous Red Blood Cells into Peripheral Vein, Percutaneous Approach (ICD-10-PCS; principal; 2023-01-17)
PROC: 5A09357 Assistance with Respiratory Ventilation, Less than 24 Consecutive Hours, Continuous Positive Airway Pressure (ICD-10-PCS; 2023-01-18)
DX: A41.9 Sepsis, unspecified organism (principal); B20 Human immunodeficiency virus [HIV] disease; J80 Acute respiratory distress syndrome; E43 Unspecified severe protein-calorie malnutrition; C16.9 Malignant neoplasm of stomach, unspecified; J18.9 Pneumonia, unspecified organism; Z66 Do not resuscitate; I11.0 Hypertensive heart disease with heart failure; K52.9 Noninfective gastroenteritis and colitis, unspecified; Z68.25 Body mass index [BMI] 25.0-25.9, adult; E11.9 Type 2 diabetes mellitus without complications; S39.82XA Other specified injuries of lower back, initial encounter; Z85.028 Personal history of other malignant neoplasm of stomach; B96.81 Helicobacter pylori [H. pylori] as the cause of diseases classified elsewhere; D64.9 Anemia, unspecified; E86.0 Dehydration; I50.9 Heart failure, unspecified; Z20.822 Contact with and (suspected) exposure to COVID-19; R74.01 Elevation of levels of liver transaminase levels; Z87.891 Personal history of nicotine dependence; Z90.49 Acquired absence of other specified parts of digestive tract
CPT/HCPCS: 36415; 36600; 71045; 71275; 74176; 80048; 80053; 80076; 81003; 82040; 82270; 82375; 82378; 82550; 82607; 82728; 82746; 82805; 82962; 83036; 83540; 83550; 83605; 83880; 84134; 84145; 84484; 85014; 85018; 85025; 85044; 85379; 86359; 86360; 86701; 86702; 86850; 86900; 86920; 87015; 87045; 87389; 87426; 87427; 87449; 87493; 90732; 93005; 93306; 94640; 94660; 97162; 99291; A6261; C9113; J0456; J0692; J0696; J1650; J1815; J1940; J2405; J2543; J2765; J2920; J2930; J3370; J3490; J7030; J7042; J7060; J7608; P9016; Q9967